=== PATIENT | female | born 1930 | race Caucasian/White ===

== ENCOUNTER → 2017-11-07 | Outpatient (CLI) | END | disposition home or self-care (01) ==

== ENCOUNTER → 2019-01-14 | Outpatient (CLI) | payer OTHER ==
[~2019-01-14] MED LIST: ASPI81EC PO; Anti-Diarrheal2 MG PO; CALC PO; CARV6.25 PO; CELE200 PO; CLOP75 PO; Dicyclomine HCl10 MG PO; FENOFIBRATE PO; FISH OIL 1200 PO; GLUCOSAMINE + MSM PO; HYDCHL12.5 PO; HYDCHL25 PO; LOSA50 PO; MULVITMIND PO; Norvasc2.5 MG PO; OMEP20ER PO; SPIR25 PO; UBID10 PO; VALACYCLOVIR1000 MG PO; VIT D PO; VITAMIN D 2000 UNITS PO
[2019-01-15 14:34] LABS: Adenovirus F 40/41 Not Detected (NOT DETECT); Astrovirus Not Detected (NOT DETECT); Campylobacter Sp Not Detected (NOT DETECT); Cryptosporidium Not Detected (NOT DETECT); Cyclospora Cayetanensis Not Detected (NOT DETECT); E. Coli O157 Not Detected (NOT DETECT); Entamoeba Histolytica Not Detected (NOT DETECT); Enteroaggregative E. coli-EAEC Not Detected (NOT DETECT); Enteropathogenic E. coli-EPEC Not Detected (NOT DETECT); Enterotoxigenic E. coli-ETEC Not Detected (NOT DETECT); Giardia Lamblia Not Detected (NOT DETECT); Norovirus GI/GII Not Detected (NOT DETECT); Plesiomonas Shigelloides Not Detected (NOT DETECT); Rotavirus A Not Detected (NOT DETECT); Salmonella Sp Not Detected (NOT DETECT); Sapovirus Not Detected (NOT DETECT); Shiga Toxin-prod E. coli-STEC Not Detected (NOT DETECT); Shigella/Enteroin E. coli-EIEC Not Detected (NOT DETECT); Vibrio Cholerae Not Detected (NOT DETECT); Vibrio Sp Not Detected (NOT DETECT); Yersinia Enterocolitica Not Detected (NOT DETECT)
== END | disposition home or self-care (01) ==
LOC: LAB 10:56 → LAB SHORT 10:56
PROVIDERS: Student in an Organized Health Care Education/Training Program
DX: K52.9 Noninfective gastroenteritis and colitis, unspecified (principal)
CPT/HCPCS: 0097U; 87324

== ENCOUNTER 2019-02-22 11:14 | Emergency (ER) | payer OTHER ==
[~2019-02-22] VITALS: Ht 165.1 cm; Wt 61.2 kg
[~2019-02-22 11:14] MED LIST changes: -Anti-Diarrheal2 MG PO; -CARV6.25 PO; -CLOP75 PO; -Dicyclomine HCl10 MG PO; -LOSA50 PO; -Norvasc2.5 MG PO; -SPIR25 PO; -VALACYCLOVIR1000 MG PO
[2019-02-22 12:10] LABS: BASOPHILS ABSOLUTE AUTO 0.06 K/mm3 (0.00-0.23); BASOPHILS PERCENT AUTO 1 % (0-2); EOSINOPHILS ABSOLUTE AUTO 0.26 K/mm3 (0.00-0.68); EOSINOPHILS PERCENT AUTO 3 % (0-6); Hematocrit 37.7 % (33.0-51.0); Hemoglobin 12.6 g/dL (11.5-16.0); IMMATURE GRAN ABSOLUTE AUTO 0.02 K/mm3 (0.00-0.10); IMMATURE GRAN PERCENT AUTO 0 % (0-1); LYMPHOCYTES ABSOLUTE AUTO 0.93 K/mm3 (0.84-5.20); LYMPHOCYTES PERCENT AUTO 11 % (21-46); MONOCYTES ABSOLUTE AUTO 0.77 K/mm3 (0.16-1.47); MONOCYTES PERCENT AUTO 9 % (4-13); Mean Corpuscular HGB 33.2 pg (26.0-34.0); Mean Corpuscular HGB Conc 33.4 g/dL (31.5-36.5); Mean Corpuscular Volume 100 fL (80-100); Mean Platelet Volume 9.4 fL (9.1-12.4); NEUTROPHILS ABSOLUTE AUTO 6.26 K/mm3 (1.96-9.15); NEUTROPHILS PERCENT AUTO 76 % (41-73); Platelet Count 271 K/mm3 (150-400); RDW Coefficient Variation 12.7 % (11.7-14.2); RDW Standard Deviation 46.6 fL (35.1-46.3); Red Blood Cell Count 3.79 M/mm3 (3.80-5.20)
[2019-02-22 12:32] LABS: Alanine Aminotransfer (ALT/SGP 16 U/L (12-78); Albumin, Blood 3.1 g/dL (3.4-5.0); Albumin/Globulin Ratio 0.8 (0.8-1.8); Alk Phos 81 U/L (50-136); Anion Gap 7 mmol/L (6-16); Aspartate Aminotrans (AST/SGOT 7 U/L (12-37); Bilirubin, Total 0.7 mg/dL (0.1-1.0); Blood Urea Nitrogen 22 mg/dL (8-24); Bun/Creatinine Ratio 27.8 (12.0-20.0); CO2, Blood 23 mmol/L (21-32); Calcium, Blood 8.6 mg/dL (8.5-10.1); Chloride, Blood 102 mmol/L (98-108); Creatinine, Blood 0.79 mg/dL (0.40-1.00); Glomerular Filtration Rate >60 (60-); Glucose, Blood 101 mg/dL (70-99); Potassium, Blood 4.3 mmol/L (3.5-5.5); Sodium, Blood 132 mmol/L (136-145); Total Protein, Blood 7.1 g/dL (6.4-8.2)
[2019-03-13] MEDS ORDERED: CELE200 PO (15:32)
== END 2019-02-22 16:55 | disposition home or self-care (01) ==
LOC: ER 11:14
PROVIDERS: Emergency Medicine
DX: K55.1 Chronic vascular disorders of intestine (principal); I77.4 Celiac artery compression syndrome; I10 Essential (primary) hypertension; Z79.899 Other long term (current) drug therapy; Z79.82 Long term (current) use of aspirin
CPT/HCPCS: 74174; 80053; 83690; 85025; 96360-59; 99284-25; J7030; Q9967

== ENCOUNTER → 2019-02-26 | Outpatient (CLI) | payer OTHER ==
[~2019-02-26] MED LIST changes: +Anti-Diarrheal2 MG PO; +CARV6.25 PO; +CLOP75 PO; +Dicyclomine HCl10 MG PO; +LOSA50 PO; +Norvasc2.5 MG PO; +SPIR25 PO; +VALACYCLOVIR1000 MG PO
[2019-02-26 18:33] LABS: International Normalized Ratio 1.04
== END | disposition home or self-care (01) ==
LOC: LAB SHORT 16:50 → OLS 16:50
PROVIDERS: Radiology Diagnostic Radiology
DX: K55.059 Acute (reversible) ischemia of intestine, part and extent unspecified (principal)
CPT/HCPCS: 36415; 85610

== ENCOUNTER 2019-02-27 07:26 | Day surgery (SDC) | payer OTHER ==
[~2019-02-27] VITALS: Ht 162.6 cm; Wt 64.0 kg
[~2019-02-27 07:26] MED LIST changes: -Anti-Diarrheal2 MG PO; -CARV6.25 PO; -CLOP75 PO; -Dicyclomine HCl10 MG PO; -LOSA50 PO; -Norvasc2.5 MG PO; -SPIR25 PO; -VALACYCLOVIR1000 MG PO
[2019-02-27] MEDS ORDERED: LOSA50 PO (07:58)
[2019-02-27] MEDS ORDERED: Norvasc2.5 MG PO (07:59)
[2019-02-27] MEDS ORDERED: CARV6.25 PO (08:00)
[2019-02-27] MEDS ORDERED: SPIR25 PO (08:01)
[2019-02-27] MEDS ORDERED: Anti-Diarrheal2 MG PO (08:02)
[2019-02-27] MEDS ORDERED: VALACYCLOVIR1000 MG PO (08:03)
[2019-02-27] MEDS ORDERED: Dicyclomine HCl10 MG PO (08:04)
--- NOTE | 2019-02-27 13:23 | NUR ---
PT UP TO BSC WITH MIN ASSISTANCE, VOIDED 300 CC. PT TOLERATED ACIVITY WELL, SITE UNCHANGED. PT SITTING UP TAKING LUNCH WITHOUT PROBLEM, DAUGHTER AT BEDSIDE, ATTENTIVE.
[2019-03-13] MEDS ORDERED: CELE200 PO (15:32)
== END 2019-02-27 17:00 | disposition home or self-care (01) ==
LOC: MHTC 07:26
DX: K55.069 Acute infarction of intestine, part and extent unspecified (principal); I77.4 Celiac artery compression syndrome; K55.1 Chronic vascular disorders of intestine; I10 Essential (primary) hypertension; E78.00 Pure hypercholesterolemia, unspecified; M19.90 Unspecified osteoarthritis, unspecified site
CPT/HCPCS: 36245; 75625; 75726; 99152; 99153; C1760; C1769; C1887; C1894; J1644; J2250; J3010; J7030; Q9967

== ENCOUNTER 2019-03-14 07:00 | Observation (INO) | payer OTHER ==
[~2019-03-14] VITALS: Ht 165.1 cm; Wt 61.3 kg
[~2019-03-14 07:00] MED LIST changes: +Anti-Diarrheal2 MG PO; +CARV6.25 PO; +Dicyclomine HCl10 MG PO; +LOSA50 PO; +Norvasc2.5 MG PO; +SPIR25 PO; +VALACYCLOVIR1000 MG PO
[2019-03-14 08:11] LABS: Hematocrit 34.3 % (33.0-51.0); Hemoglobin 11.7 g/dL (11.5-16.0); Mean Corpuscular HGB Conc 34.1 g/dL (31.5-36.5); Mean Corpuscular Volume 100 fL (80-100); Mean Platelet Volume 8.9 fL (9.1-12.4); Platelet Count 296 K/mm3 (150-400); RDW Coefficient Variation 12.9 % (11.7-14.2); RDW Standard Deviation 47.4 fL (35.1-46.3); Red Blood Cell Count 3.44 M/mm3 (3.80-5.20); White Blood Cell Count 4.54 K/mm3 (4.00-11.30)
[2019-03-14 08:33] LABS: Anion Gap 7 mmol/L (6-16); Blood Urea Nitrogen 16 mg/dL (8-24); Bun/Creatinine Ratio 19.3 (12.0-20.0); CO2, Blood 24 mmol/L (21-32); Calcium, Blood 8.6 mg/dL (8.5-10.1); Chloride, Blood 105 mmol/L (98-108); Creatinine, Blood 0.83 mg/dL (0.40-1.00); Glomerular Filtration Rate >60 (60-); Glucose, Blood 99 mg/dL (70-99); Sodium, Blood 136 mmol/L (136-145)
[2019-03-14] MEDS ORDERED: CLOP75 PO (11:05)
--- NOTE | 2019-03-14 13:00 | NUR ---
PT UP FROM RESTROOM, REPORTS DIZZINESS. PT BACK INTO BED. VSS. CONTINOUS MONITORING IN PLACE. PT REPORTS, " LONG I CLOSE MY EYES, I AM FINE". DR KAY MADE AWARE. NO NEW ORDERS IN PLACE. CALL LIGHT WITHIN REACH.
--- NOTE | 2019-03-14 13:26 | NUR ---
DR. KAY HERE TO EVALUATE PATIENT C/O RIGHT EYE BLURRY.
--- NOTE | 2019-03-14 14:26 | NUR ---
PT. STILL HAS BLURRED VISION BOTH EYES.
--- NOTE | 2019-03-14 16:12 | NUR ---
BLURRED VISION AND DIZZINESS CONTINUES. PATIENT NOW IS WEARING S SLEEP MASK TO AID IN DIZZINESS.
--- NOTE | 2019-03-14 16:19 | NUR ---
DR. KAY HERE. PT TO BE ADMITTED TO 211 OBSERVATION STATUS. TO START ON HEPARIN DRIP.
[2019-03-14 17:48] LABS: International Normalized Ratio 1.04
--- NOTE | 2019-03-14 18:20 | NUR ---
SUMMARY PT ADMITTED TO THE FLOOR, VVS, RESP UNLABORED. PT DENIES CP/PRESSURE, DRSG INTACT TO LEFT BRACHIAL. SMALL AMOUNT OF DRAINAGE PRESENT. PRIOR RN STATES THIS WAS PRESENT AT PLACEMENT. PT CONTINUES TO BEDIZZY UPON STANDING BUT IMPROVES WHILE RESTING IN BED. SHE HAS A FACE MASK ON. PT'S DAUGHTER IS AT THE BEDSIDE AND ASSIST'S WITH CARE. PT IS TOLERATING PO INTAKE, VOIDING WNL. HEPERIN UNFUSING PER EMAR AT 15.9 ML/HR. CALL LIGHT IN REACH.
--- NOTE | 2019-03-15 06:07 | NUR ---
Patient A/Ox4. VSS. Complaints of dizziness and blurry vision. Seen by Tonja, orders for Imitrix received and given for migraine; inneffective. Heparin drip D/C. Received orders for Exedrin, to be given when patient awakes. Keep room dark and quiet. Patient using bedside commode. voiding freely. Tegaderm dressing to left upper arm, Shadowing present. IV to Right AC leaking. 22g placed in R forearm. No complaints of pain.
--- NOTE | 2019-03-15 11:09 | NUR ---
Upon receiving a spiritual care referral, I visited patient. Patient is sitting up in bed and alert with daughter, Kayleigh, bedside. Patient tells me about her current symptoms and what the plan of care is for her. Patient tells me of her frustration to be down and not up and moving. I listen empathically and provide a calming presence and prayer. Patient responds well and shows signs of reduced stress. I will continue to remain available to patient and family.
--- NOTE | 2019-03-15 11:52 | NUR ---
CONSULT: OPTHAMOLOGY CONSULT CALLED TO DR KEITA PER DR WALKER ORDERS.
--- NOTE | 2019-03-15 16:18 | NUR ---
DISCHARGE: PT DC TO HOME AT THIS TIME WITH DAUGHTER. PT STATES SYMPTOMS HAVE IMPROVED SOMEWHAT FROM YESTERDAY. CT OF HEAD COMPLETED AND DISCUSSED WITH HOSPITALIST AND CARDIOLOGY. OPTHAMOLOGY CONSULT CALLED BUT THEY STATE WILL SEE PT ON OUTPATIENT BASIS. REFERRAL ENTERED. VERBAL UNDERSTANDING OF DC INSTRUCTIONS, FOLLOW UP, PROBLEMS TO REPORT AND MEDICATIONS. IV DC'D WNL. BRACHIAL DRESSING REMOVED, NO OOZING. PT LEFT VIA WHEELCHAIR TO CAR WITH BELONGINGS.
== END 2019-03-15 17:00 | disposition home or self-care (01) ==
LOC: SURS 07:00 → MHTC 07:00 → SURS 16:19 → MHTC 16:54 → SURS 03-15 17:00
PROVIDERS: ADMIT Radiology Diagnostic Radiology
DX: G43.109 Migraine with aura, not intractable, without status migrainosus (principal); I77.4 Celiac artery compression syndrome; I70.1 Atherosclerosis of renal artery; K55.069 Acute infarction of intestine, part and extent unspecified; I73.9 Peripheral vascular disease, unspecified; E87.1 Hypo-osmolality and hyponatremia; I10 Essential (primary) hypertension; K21.9 Gastro-esophageal reflux disease without esophagitis; E78.00 Pure hypercholesterolemia, unspecified; Z88.1 Allergy status to other antibiotic agents; Z79.899 Other long term (current) drug therapy
CPT/HCPCS: 36415; 37236; 70450; 75625; 75726; 75774; 80048; 85027; 85347; 85610; 85730; 96365; 96366; 99152; 99153; C1725; C1769; C1876; C1887; C1894; G0378; J1644; J2250; J3010; J7030; Q9967

== ENCOUNTER 2019-04-25 07:59 | Day surgery (SDC) | payer OTHER ==
[~2019-04-25] VITALS: Ht 162.6 cm; Wt 62.0 kg
[~2019-04-25 07:59] MED LIST changes: +CLOP75 PO; +HYDR1TAB94
--- NOTE | 2019-04-25 17:44 | NUR ---
PT UP TO BEDSIDE COMMODE, VOIDED MODERATE AMOUNT. RIGHT FEM SITE STABLE WITHOUT SWELLING, BLEEDING, OR HEMATOMA. RIGHT BRACHIAL SITE TENDER WITHOUT BLEEDING OR HEMATOMA. LEFT BRACHIAL SITE WITHOUT BLEEDING OR HEMATOMA. PT DAUGHTER HER, DISCHARGE GONE OVER WITH DAUGHTER AND PT. DAUGHTER VERBALIZES UNDERSTANDING OF INSTRUCTIONS AND ALSO WILL REMAIN WITH PT T/O NIGHT. PT TO PRIVATE VEHICLE PER W/C WITH ONE STAFF ABND DAUGHTER.
== END 2019-04-25 23:07 | disposition home or self-care (01) ==
LOC: MHTC 07:59
DX: K55.1 Chronic vascular disorders of intestine (principal); I73.9 Peripheral vascular disease, unspecified; E78.00 Pure hypercholesterolemia, unspecified; I10 Essential (primary) hypertension; M19.90 Unspecified osteoarthritis, unspecified site; G89.29 Other chronic pain; M54.9 Dorsalgia, unspecified; K21.9 Gastro-esophageal reflux disease without esophagitis; H26.9 Unspecified cataract; Z88.1 Allergy status to other antibiotic agents; Z79.899 Other long term (current) drug therapy; Z79.02 Long term (current) use of antithrombotics/antiplatelets
CPT/HCPCS: 99152; 99153; C1760; C1769; C1887; C1894; J1200; J1644; J2060; J2250; J7030; Q9967

== ENCOUNTER 2020-06-01 08:25 | Emergency (ER) | payer MEDICARE ==
[~2020-06-01] VITALS: Ht 162.6 cm; Wt 63.5 kg
[2020-06-01 09:56] LABS: BASOPHILS ABSOLUTE AUTO 0.06 K/mm3 (0.00-0.23); BASOPHILS PERCENT AUTO 1 % (0-2); EOSINOPHILS ABSOLUTE AUTO 0.19 K/mm3 (0.00-0.68); EOSINOPHILS PERCENT AUTO 4 % (0-6); Hematocrit 37.7 % (33.0-51.0); Hemoglobin 12.2 g/dL (11.5-16.0); IMMATURE GRAN ABSOLUTE AUTO 0.01 K/mm3 (0.00-0.10); IMMATURE GRAN PERCENT AUTO 0 % (0-1); LYMPHOCYTES ABSOLUTE AUTO 0.69 K/mm3 (0.84-5.20); LYMPHOCYTES PERCENT AUTO 15 % (21-46); MONOCYTES ABSOLUTE AUTO 0.67 K/mm3 (0.16-1.47); MONOCYTES PERCENT AUTO 15 % (4-13); Mean Corpuscular HGB 30.7 pg (26.0-34.0); Mean Corpuscular HGB Conc 32.4 g/dL (31.5-36.5); Mean Corpuscular Volume 95 fL (80-100); NEUTROPHILS PERCENT AUTO 65 % (41-73); Platelet Count 255 K/mm3 (150-400); RDW Coefficient Variation 13.9 % (11.7-14.2); RDW Standard Deviation 48.8 fL (35.1-46.3); Red Blood Cell Count 3.97 M/mm3 (3.80-5.20); White Blood Cell Count 4.62 K/mm3 (4.00-11.30)
[2020-06-01 10:17] LABS: Albumin, Blood 3.2 g/dL (3.4-5.0); Albumin/Globulin Ratio 0.8 (0.8-1.8); Bilirubin, Total 0.4 mg/dL (0.1-1.0); Calcium, Blood 8.8 mg/dL (8.5-10.1); Creatinine, Blood 0.94 mg/dL (0.40-1.00); Globulin, Blood 3.8 g/dL (2.2-4.0); Potassium, Blood 4.2 mmol/L (3.5-5.5)
== END 2020-06-01 13:17 | disposition home or self-care (01) ==
LOC: ER 08:25
PROVIDERS: Physician Assistant
DX: R19.7 Diarrhea, unspecified (principal); I10 Essential (primary) hypertension; Z79.02 Long term (current) use of antithrombotics/antiplatelets; Z98.890 Other specified postprocedural states; Z79.899 Other long term (current) drug therapy
CPT/HCPCS: 36415; 74174; 80053; 85025; 93976; 99284-25; Q9967

== ENCOUNTER → 2020-08-03 | Outpatient (CLI) | payer MEDICARE, SELFPAY | END | disposition home or self-care (01) | LOC: PLD 08:30 → LAB SHORT 08:30 | DX: D04.4 Carcinoma in situ of skin of scalp and neck (principal) | CPT/HCPCS: 88305 ==